=== PATIENT | male | born 1960 | race Caucasian/White ===

== ENCOUNTER 2018-10-25 09:38 | Emergency (ER) | payer BC ==
[~2018-10-25] VITALS: Ht 177.8 cm; Wt 102.5 kg
[~2018-10-25 09:38] MED LIST: AMOCLA875 PO; ATOR20 PO; Atenolol-Chlor1 EACH PO; HYDACE5; OXYACE5T PO; Omeprazole20 M1 PO; PENVK500
[2018-10-25] MEDS ORDERED: ATEN100 (09:55)
[2018-10-25] MEDS ORDERED: OTEZLA30 MG PO (09:55)
[2018-10-25] MEDS ORDERED: PSEU120ER PO (09:55)
[2018-10-25] MEDS ORDERED: CIPDEXSU RIGHTEAR (11:57)
== END 2018-10-25 12:09 | disposition home or self-care (01) ==
LOC: ER 09:38
DX: H60.91 Unspecified otitis externa, right ear (principal); Z88.8 Allergy status to other drugs, medicaments and biological substances; Z79.899 Other long term (current) drug therapy; I10 Essential (primary) hypertension; K21.9 Gastro-esophageal reflux disease without esophagitis; E78.5 Hyperlipidemia, unspecified
CPT/HCPCS: 70480; 99283-25

== ENCOUNTER 2021-07-27 06:44 | Emergency (ER) | payer BC ==
[~2021-07-27] VITALS: Ht 177.8 cm; Wt 103.4 kg
[~2021-07-27 06:44] MED LIST changes: +ATEN100; +CIPDEXSU RIGHTEAR; +OTEZLA30 MG PO; +PSEU120ER PO
[2021-07-27] MEDS ORDERED: LISI20 PO (07:26)
[2021-07-27] MEDS ORDERED: HUMIRA PEN40 MG/0.2 SC (07:26)
[2021-07-27] MEDS ORDERED: Prednisone20 MG PO (08:17)
== END 2021-07-27 08:21 | disposition home or self-care (01) ==
LOC: ER 06:44
DX: L27.1 Localized skin eruption due to drugs and medicaments taken internally (principal); T38.3X5A Adverse effect of insulin and oral hypoglycemic [antidiabetic] drugs, initial encounter; I10 Essential (primary) hypertension; E78.5 Hyperlipidemia, unspecified; K21.9 Gastro-esophageal reflux disease without esophagitis; Z79.899 Other long term (current) drug therapy
CPT/HCPCS: 99282; J7512

== ENCOUNTER 2021-08-17 10:37 | Emergency (ER) | payer BC ==
[~2021-08-17] VITALS: Ht 177.8 cm; Wt 99.8 kg
[~2021-08-17 10:37] MED LIST changes: +HUMIRA PEN40 MG/0.2 SC; +LISI20 PO; +Prednisone20 MG PO
[2021-08-17 11:14] LABS: BASOPHILS ABSOLUTE AUTO 0.03 K/mm3 (0.00-0.23); BASOPHILS PERCENT AUTO 0 % (0-2); EOSINOPHILS ABSOLUTE AUTO 0.05 K/mm3 (0.00-0.68); EOSINOPHILS PERCENT AUTO 1 % (0-6); Hematocrit 40.8 % (37.0-53.0); IMMATURE GRAN ABSOLUTE AUTO 0.02 K/mm3 (0.00-0.10); IMMATURE GRAN PERCENT AUTO 0 % (0-1); LYMPHOCYTES ABSOLUTE AUTO 2.31 K/mm3 (0.84-5.20); LYMPHOCYTES PERCENT AUTO 28 % (21-46); MONOCYTES ABSOLUTE AUTO 0.69 K/mm3 (0.16-1.47); MONOCYTES PERCENT AUTO 9 % (4-13); Mean Corpuscular HGB Conc 34.3 g/dL (31.5-36.5); Mean Corpuscular Volume 93 fL (80-100); Mean Platelet Volume 9.9 fL (9.1-12.4); NEUTROPHILS ABSOLUTE AUTO 5.04 K/mm3 (1.96-9.15); NEUTROPHILS PERCENT AUTO 62 % (41-73); Platelet Count 198 K/mm3 (150-400); RDW Coefficient Variation 13.9 % (11.7-14.2); RDW Standard Deviation 48.2 fL (35.1-46.3); Red Blood Cell Count 4.37 M/mm3 (4.30-5.90); White Blood Cell Count 8.14 K/mm3 (4.00-11.30)
[2021-08-17 11:30] LABS: Alanine Aminotransfer (ALT/SGP 132 U/L (12-78); Albumin, Blood 3.7 g/dL (3.4-5.0); Albumin/Globulin Ratio 1.2 (0.8-1.8); Alk Phos 53 U/L (50-136); Anion Gap 9 mmol/L (6-16); Aspartate Aminotrans (AST/SGOT 96 U/L (12-37); Bilirubin, Total 0.4 mg/dL (0.1-1.0); Blood Urea Nitrogen 9 mg/dL (8-24); Bun/Creatinine Ratio 11.7 (12.0-20.0); CO2, Blood 27 mmol/L (21-32); Calcium, Blood 9.4 mg/dL (8.5-10.1); Chloride, Blood 103 mmol/L (98-108); Creatinine, Blood 0.77 mg/dL (0.60-1.20); Globulin, Blood 3.1 g/dL (2.2-4.0); Glomerular Filtration Rate >60 (60-); Glucose, Blood 99 mg/dL (70-99); Potassium, Blood 3.2 mmol/L (3.5-5.5); Sodium, Blood 139 mmol/L (136-145); Total Protein, Blood 6.8 g/dL (6.4-8.2)
== END 2021-08-17 13:14 | disposition home or self-care (01) ==
LOC: ER 10:37
PROVIDERS: Emergency Medicine
DX: K40.20 Bilateral inguinal hernia, without obstruction or gangrene, not specified as recurrent (principal); I10 Essential (primary) hypertension; K21.9 Gastro-esophageal reflux disease without esophagitis; E78.5 Hyperlipidemia, unspecified; Z88.6 Allergy status to analgesic agent
CPT/HCPCS: 36415; 74177; 80053; 85025; Q9967

== ENCOUNTER 2022-01-25 13:14 | Emergency (ER) | payer BC ==
[~2022-01-25] VITALS: Ht 177.8 cm; Wt 95.7 kg
== END 2022-01-25 15:00 | disposition home or self-care (01) ==
LOC: ER 13:14
DX: S06.0X1A Concussion with loss of consciousness of 30 minutes or less, initial encounter (principal); K21.9 Gastro-esophageal reflux disease without esophagitis; I10 Essential (primary) hypertension; E78.5 Hyperlipidemia, unspecified; W19.XXXA Unspecified fall, initial encounter; Z79.899 Other long term (current) drug therapy; Z88.8 Allergy status to other drugs, medicaments and biological substances
CPT/HCPCS: 70450; 72125; 99284-25

== ENCOUNTER 2022-02-14 09:35 | Emergency (ER) | payer BC ==
[~2022-02-14] VITALS: Ht 177.8 cm; Wt 95.2 kg
[2022-02-14] MEDS ORDERED: ESCI20 PO (10:06)
[2022-02-14 10:43] LABS: BASOPHILS ABSOLUTE AUTO 0.01 K/mm3 (0.00-0.23); BASOPHILS PERCENT AUTO 0 % (0-2); EOSINOPHILS ABSOLUTE AUTO 0.01 K/mm3 (0.00-0.68); EOSINOPHILS PERCENT AUTO 0 % (0-6); Hemoglobin 13.8 g/dL (13.5-17.5); IMMATURE GRAN ABSOLUTE AUTO 0.01 K/mm3 (0.00-0.10); IMMATURE GRAN PERCENT AUTO 0 % (0-1); LYMPHOCYTES ABSOLUTE AUTO 1.97 K/mm3 (0.84-5.20); LYMPHOCYTES PERCENT AUTO 58 % (21-46); MONOCYTES ABSOLUTE AUTO 0.43 K/mm3 (0.16-1.47); MONOCYTES PERCENT AUTO 13 % (4-13); Mean Corpuscular HGB 32.2 pg (26.0-34.0); Mean Corpuscular HGB Conc 36.3 g/dL (31.5-36.5); Mean Corpuscular Volume 89 fL (80-100); Mean Platelet Volume 12.2 fL (9.1-12.4); NEUTROPHILS ABSOLUTE AUTO 0.98 K/mm3 (1.96-9.15); NEUTROPHILS PERCENT AUTO 29 % (41-73); Platelet Count 101 K/mm3 (150-400); RDW Coefficient Variation 14.4 % (11.7-14.2); RDW Standard Deviation 46.6 fL (35.1-46.3); Red Blood Cell Count 4.28 M/mm3 (4.30-5.90); White Blood Cell Count 3.41 K/mm3 (4.00-11.30)
[2022-02-14 10:59] LABS: Albumin, Blood 2.9 g/dL (3.4-5.0); Bun/Creatinine Ratio 6.4 (12.0-20.0); Calcium, Blood 8.8 mg/dL (8.5-10.1); Creatinine, Blood 0.94 mg/dL (0.60-1.20); Magnesium, Blood 1.6 mg/dL (1.6-2.4); Potassium, Blood 3.2 mmol/L (3.5-5.5); Total Protein, Blood 5.9 g/dL (6.4-8.2)
[2022-02-14 11:08] LABS: International Normalized Ratio 1.19; Prothrombin Time Results 12.4 Sec (9.7-11.5)
== END 2022-02-14 12:33 | disposition home or self-care (01) ==
LOC: ER 09:35
PROVIDERS: Emergency Medicine
DX: F10.10 Alcohol abuse, uncomplicated (principal); K70.30 Alcoholic cirrhosis of liver without ascites; E87.1 Hypo-osmolality and hyponatremia; E87.6 Hypokalemia; D69.6 Thrombocytopenia, unspecified; I10 Essential (primary) hypertension; Z79.899 Other long term (current) drug therapy
CPT/HCPCS: 70450; 80053; 82140; 83690; 83735; 85025; 85610; 85730; 93005; 93010; A9270; J7030

== ENCOUNTER 2022-04-29 09:24 | Day surgery (SDC) | payer BC ==
[~2022-04-29] VITALS: Ht 182.9 cm; Wt 103.1 kg
[~2022-04-29 09:24] MED LIST changes: +ESCI20 PO
[2022-04-29] MEDS ORDERED: Prinivil10 MG (09:46)
[2022-04-29] MEDS ORDERED: TESTOSTERONE200 MG (09:46)
== END 2022-04-29 11:38 | disposition home or self-care (01) ==
LOC: ORSCSDS 09:24
PROVIDERS: Internal Medicine Gastroenterology
PROC: 0DBP8ZX Excision of Rectum, Via Natural or Artificial Opening Endoscopic, Diagnostic (ICD-10-PCS; principal; 2022-04-29 10:45)
PROC: 0DB58ZX Excision of Esophagus, Via Natural or Artificial Opening Endoscopic, Diagnostic (ICD-10-PCS; principal; 2022-04-29 10:45)
DX: R10.84 Generalized abdominal pain (principal); K22.70 Barrett's esophagus without dysplasia; K62.5 Hemorrhage of anus and rectum; K62.1 Rectal polyp; Z80.0 Family history of malignant neoplasm of digestive organs; Z83.71 Family history of colonic polyps; E78.2 Mixed hyperlipidemia; I20.9 Angina pectoris, unspecified; I10 Essential (primary) hypertension; K64.4 Residual hemorrhoidal skin tags; K62.89 Other specified diseases of anus and rectum; K21.9 Gastro-esophageal reflux disease without esophagitis; F17.210 Nicotine dependence, cigarettes, uncomplicated; Z79.899 Other long term (current) drug therapy
CPT/HCPCS: 82947; 88305; J2704; J7120

== ENCOUNTER 2022-12-21 11:59 | Emergency (ER) | payer BC ==
[~2022-12-21] VITALS: Ht 180.3 cm; Wt 95.7 kg
[~2022-12-21 11:59] MED LIST changes: +Prinivil10 MG; +TESTOSTERONE200 MG
[2022-12-21 12:30] LABS: BASOPHILS ABSOLUTE AUTO 0.02 K/mm3 (0.00-0.23); BASOPHILS PERCENT AUTO 0 % (0-2); EOSINOPHILS ABSOLUTE AUTO 0.01 K/mm3 (0.00-0.68); EOSINOPHILS PERCENT AUTO 0 % (0-6); Hematocrit 35.4 % (37.0-53.0); Hemoglobin 12.2 g/dL (13.5-17.5); IMMATURE GRAN PERCENT AUTO 0 % (0-1); LYMPHOCYTES ABSOLUTE AUTO 2.52 K/mm3 (0.84-5.20); LYMPHOCYTES PERCENT AUTO 54 % (21-46); MONOCYTES ABSOLUTE AUTO 0.52 K/mm3 (0.16-1.47); MONOCYTES PERCENT AUTO 11 % (4-13); Mean Corpuscular HGB 33.9 pg (26.0-34.0); Mean Corpuscular HGB Conc 34.5 g/dL (31.5-36.5); Mean Corpuscular Volume 98 fL (80-100); Mean Platelet Volume 10.4 fL (9.1-12.4); NEUTROPHILS ABSOLUTE AUTO 1.63 K/mm3 (1.96-9.15); NEUTROPHILS PERCENT AUTO 35 % (41-73); Platelet Count 142 K/mm3 (150-400); RDW Coefficient Variation 15.4 % (11.7-14.2); RDW Standard Deviation 54.9 fL (35.1-46.3)
[2022-12-21 12:49] LABS: Albumin, Blood 2.6 g/dL (3.4-5.0); Albumin/Globulin Ratio 0.7 (0.8-1.8); Bilirubin, Total 4.6 mg/dL (0.1-1.0); Bun/Creatinine Ratio 2.6 (12.0-20.0); Calcium, Blood 8.4 mg/dL (8.5-10.1); Creatinine, Blood 0.78 mg/dL (0.60-1.20); Globulin, Blood 3.8 g/dL (2.2-4.0); Potassium, Blood 2.9 mmol/L (3.5-5.5); Total Protein, Blood 6.4 g/dL (6.4-8.2)
[2022-12-21 13:15] VITALS: BP 142/78
[2022-12-21] MEDS ORDERED: K-Dur20 MEQ PO (13:46)
== END 2022-12-21 14:07 | disposition home or self-care (01) ==
LOC: ER 11:59
PROVIDERS: Physician Assistant
DX: K70.40 Alcoholic hepatic failure without coma (principal); F10.10 Alcohol abuse, uncomplicated; Y90.9 Presence of alcohol in blood, level not specified; E87.8 Other disorders of electrolyte and fluid balance, not elsewhere classified; Z88.8 Allergy status to other drugs, medicaments and biological substances; Z79.899 Other long term (current) drug therapy; I10 Essential (primary) hypertension; K21.9 Gastro-esophageal reflux disease without esophagitis; E78.5 Hyperlipidemia, unspecified
CPT/HCPCS: 80053; 83690; 83880; 85025; 93005; 93010; 99284-25; A9270

== ENCOUNTER 2023-02-09 08:30 | Inpatient (IN) | payer BC ==
[~2023-02-09] VITALS: Ht 177.8 cm; Wt 95.9 kg
[~2023-02-09 08:30] MED LIST changes: +K-Dur20 MEQ PO; +OMEP20ER PO; -Omeprazole20 M1 PO; -Prinivil10 MG; +Prinivil10 MG PO; -TESTOSTERONE200 MG; +TESTOSTERONE200 MG IM
[2023-02-09 10:35] LABS: Calcium, Ionized (POC) 0.95 mmol/L (1.10-1.46); Chloride (POC) 101 mmol/L (98-108); Glucose (ISTAT POC) 79 mg/dL (70-99); Hemoglobin (POC) 15.3 g/dL (13.5-17.5); Potassium (POC) 4.6 mmol/L (3.5-5.5); Sodium (POC) 133 mmol/L (135-148); Total CO2 (POC) 19 mmol/L (21-32)
[2023-02-09 10:56] LABS: BASOPHILS ABSOLUTE AUTO 0.02 K/mm3 (0.00-0.23); BASOPHILS PERCENT AUTO 0 % (0-2); EOSINOPHILS ABSOLUTE AUTO 0.01 K/mm3 (0.00-0.68); EOSINOPHILS PERCENT AUTO 0 % (0-6); Hematocrit 38.3 % (37.0-53.0); Hemoglobin 13.8 g/dL (13.5-17.5); IMMATURE GRAN ABSOLUTE AUTO 0.02 K/mm3 (0.00-0.10); IMMATURE GRAN PERCENT AUTO 0 % (0-1); LYMPHOCYTES ABSOLUTE AUTO 1.95 K/mm3 (0.84-5.20); LYMPHOCYTES PERCENT AUTO 26 % (21-46); MONOCYTES ABSOLUTE AUTO 0.52 K/mm3 (0.16-1.47); MONOCYTES PERCENT AUTO 7 % (4-13); Mean Corpuscular HGB 33.1 pg (26.0-34.0); Mean Corpuscular Volume 92 fL (80-100); NEUTROPHILS PERCENT AUTO 67 % (41-73); Platelet Count 142 K/mm3 (150-400); RDW Coefficient Variation 14.3 % (11.7-14.2); RDW Standard Deviation 48.5 fL (35.1-46.3); Red Blood Cell Count 4.17 M/mm3 (4.30-5.90); White Blood Cell Count 7.62 K/mm3 (4.00-11.30)
[2023-02-09 11:29] LABS: Albumin, Blood 3.3 g/dL (3.4-5.0); Albumin/Globulin Ratio 1.1 (0.8-1.8); Bilirubin, Total 3.5 mg/dL (0.1-1.0); Bun/Creatinine Ratio 10.6 (12.0-20.0); Calcium, Blood 8.1 mg/dL (8.5-10.1); Creatinine, Blood 3.22 mg/dL (0.60-1.20); Globulin, Blood 3.1 g/dL (2.2-4.0); Potassium, Blood 4.7 mmol/L (3.5-5.5); Total Protein, Blood 6.4 g/dL (6.4-8.2)
[2023-02-09 15:58] VITALS: BP 107/50
[2023-02-09 19:28] VITALS: BP 118/55
--- NOTE | 2023-02-09 19:45 | NUR ---
SHIFT SUMMARY- PT ADMITTED THROUGH THE ED. DEFINATELY UNDER THE INFLUENCE OF ALCOHOL AND SMELLING OF VODKA. PT HAS SNUFF IN HIS MOUTH ON ARRIVAL, THIS RN PLACED THE CAN OF CHEW IN THE LOCKED DRAWER. PT CALLED HIS SPOUSE AND ASKED HER TO BRING HIM MORE. THIS EVENING AFTER DINNER THE PT HAD MORE IN HIS MOUTH. PASSED ON IN BEDSIDE REPORT FOR NIGHT RN TO PLACE THE NEXT CAN OF SNUFF IN THE SAME LOCATION. PT HAD SEVERE SHAKES ON ARRIVAL AND STATED IT WAS BECAUSE OF ANXIETY MEDICATED WITH 1MG PO ATIVAN PER DR WOODARD. PT SPOUSE CAME TO SEE HIM THIS EVENING. PER HER AND THE PT, THE PT FELL INTO A GLASS CABINET AND CUT HIMSELF; BEING DRUNK HE DECIDED TO GO TO BED. HE WOKE LATER AND DECIDED TO GO TO THE BATHROOM, SLIPPED IN HIS OWN PUDDLE OF BLOOD. THERE IS MULTIPLE SCATTERED BRUISES NOTED LIKELY R/T THIS. PHOTO TAKEN OF THE LEG LACERATION, HAND LACERATION WAS SPLINTED DR LADN CONSULTED, WILL WAIT FOR HIM TO UNDRESS THE WOUND, DRESSING C/D/I. PT IN BED CALL LIGHT IN REACH NO S&S OF DISTRESS.
[2023-02-10 05:13] VITALS: BP 130/62
[2023-02-10 05:42] LABS: Hematocrit 33.3 % (37.0-53.0); Hemoglobin 12.3 g/dL (13.5-17.5); Mean Corpuscular HGB 32.5 pg (26.0-34.0); Mean Corpuscular HGB Conc 36.9 g/dL (31.5-36.5); Mean Corpuscular Volume 88 fL (80-100); Mean Platelet Volume 11.7 fL (9.1-12.4); Platelet Count 98 K/mm3 (150-400); RDW Coefficient Variation 13.9 % (11.7-14.2); RDW Standard Deviation 44.8 fL (35.1-46.3); Red Blood Cell Count 3.79 M/mm3 (4.30-5.90)
[2023-02-10 06:26] LABS: Albumin, Blood 3.1 g/dL (3.4-5.0); Albumin/Globulin Ratio 1.1 (0.8-1.8); Bilirubin, Total 3.3 mg/dL (0.1-1.0); Bun/Creatinine Ratio 16.2 (12.0-20.0); Calcium, Blood 8.4 mg/dL (8.5-10.1); Creatinine, Blood 1.73 mg/dL (0.60-1.20); Globulin, Blood 2.8 g/dL (2.2-4.0); Magnesium, Blood 1.6 mg/dL (1.6-2.4); Total Protein, Blood 5.9 g/dL (6.4-8.2)
--- NOTE | 2023-02-10 06:34 | NUR ---
SHIFT SUMMARY A/OX4. ROOM AIR. PT STATES HE HAS NO PAIN. PRN ATIVAN 1 MG GIVEN X2 FOR SEVERE TREMORS. PATIENT IS UNSTEADY ON HIS FEET, 1 PERSON TO BSC. PT IS STARTING TO HAVE SOME VISUAL HALLUCINATIONS, HE THOUGTH I HAD BARON PINS ALL OVER MY ARMS. NO NAUSEA, NO AUDITORY HALLUCINATIONS, COOPERATIVE AND FOLLOWS COMMANDS. LR INFUSING AT 150 ML/HR. BED LOCKED IN LOW POSITION, CALL LIGHT IN REACH, BED ALARM ON HE DOES NOT CALL BEFORE ATTEMPTING TO GET UP. SCD'S ON RIGHT LEG ONLY, DRESSING TO LEFT ANKLE IN PLACE.
[2023-02-10 06:42] LABS: BASOPHILS PERCENT MAN 0 % (0-2); EOSINOPHILS PERCENT MAN 0 % (0-6); LYMPHOCYTES ABSOLUTE MAN 2.05 K/mm3 (0.84-5.20); LYMPHOCYTES PERCENT MAN 27 % (21-46); MONOCYTES PERCENT MAN 4 % (4-13); NEUTROPHILS ABSOLUTE MAN 5.24 K/mm3 (1.96-9.15); SEG NEUTROPHILS PERCENT MAN 69 % (41-73); TOTAL CELLS COUNTED 100
[2023-02-10 07:39] VITALS: BP 139/63
--- NOTE | 2023-02-10 11:15 | NUR ---
[facility]- PT DOES NOT HAVE OFFICIAL [facility] ORDERS, AWARE. PT WOKE AND NEEDED TO URINATE, HE COULD NOT FIGURE OUT THE CALL LIGHT AND INSTEAD GOT OOB, SETTING OFF THE BED ALARM. THIS RN RESPONDED, THE PT STANDING NEXT TO THE BED SHAKING AND JERKING, DISORIENTED STILL ATTACHED TOP IV AND SCD. VOIDING ON THE FLOOR. PT HAD BEEN ENCOURAGED TO CALL FOR SATFF ASSISTANCE EARLIER AND HE SEEMED TO UNDERSTAND AT THAT TIME. STAFF ASSISTED THE PT TO CHANGE HIS UNDER GARMENTS WELL SOILED GOWN. LINNENS CHANGED AND EVS WAS CALLED FOR A MOP UP. PT ASSISTED BACK TO BED AND MEDICATED FOR THE TREMMORS WITH PO ATIVAN. IV STILL PATENT, URINE SOAKED DRESSINGS CHANGED, URINE SOAKED SCD CHANGED. PT IN BED AND SHAKING VIOLENTLY, MEDICATED WITH 1 MG PO ATIVAN AT 1120. PT DENIES ONEIL NAUSEA OR HALLUCINATIONS, CAN NO LONGER STATE THE DATE, BUT HE KNOWS HE IS AT [facility] IN [place].
[2023-02-10 15:20] VITALS: BP 143/69
[2023-02-10 19:17] VITALS: BP 147/74
--- NOTE | 2023-02-10 20:15 | NUR ---
SHIFT SUMMARY- PT ALERT AND ORIENTED BUT SEMS MORE CONFUSED THIS EVENING, TREMMORS APEAR TO BE BETTER WITH THE REGULAR Tx WITH PO ATIVAN. PT IS PLEASENT AND HAS HAD SMAL HALLUCINATIONS ON AND OFF T/O THE DAY. HE HAD AN INCIDENT WHERE HE SEEMED TO ASPIRATE CHEWING TOBACO ( NOTIFIED). THE SECOND CAN OF IT WAS PLACED IN THE LOCKED DRAWER. PT SPOUSE BROUGHT ANOTHER CAN THIS EVENING. THIS RN EXPLAINED TO HER THAT PER DR WOODARD THE PT IS NOT ALLOWED TO HAVE IT HERE AND SHE NEEDS TO TAKE IT HOME WITH HER WHEN SHE LEAVES. PT HAS SOME IN HIS MOUTH CURRENTLY, BUT SHE TOOK THE THIRD CAN HOME WITH HER. PT IN BED, CALL LIGHT IN REACH, NO S&S OF DISTRESS AT THE TIME OF BEDSIDE REPORT.
[2023-02-11 04:47] VITALS: BP 118/69
--- NOTE | 2023-02-11 05:50 | NUR ---
SHIFT SUMMARY 62 YR M ADMITTED ON 02/09/23 FOR [facility]. FULL CODE. NO ACUTE CHANGES THIS SHIFT. PT WAS A&O X 2 AT BEGINNING OF SHIFT. HE IS UNSTAEDY ON HIS FEET AND HAS TREMORS OF BOTH HANDS. PT HAS SLEPT FOR MOST OF THIS SHIFT SO NO ATIVAN WAS GIVEN. WILL CONTINUE TO MONITOR FOR S/S OF DT'S.
[2023-02-11 05:52] LABS: Hematocrit 30.9 % (37.0-53.0); Hemoglobin 11.3 g/dL (13.5-17.5); Mean Corpuscular HGB 33.2 pg (26.0-34.0); Mean Corpuscular HGB Conc 36.6 g/dL (31.5-36.5); Mean Corpuscular Volume 91 fL (80-100); Mean Platelet Volume 12.4 fL (9.1-12.4); Platelet Count 58 K/mm3 (150-400); RDW Coefficient Variation 14.3 % (11.7-14.2); RDW Standard Deviation 47.8 fL (35.1-46.3); White Blood Cell Count 4.86 K/mm3 (4.00-11.30)
[2023-02-11 06:06] LABS: Magnesium, Blood 1.4 mg/dL (1.6-2.4)
[2023-02-11 06:07] LABS: Bun/Creatinine Ratio 12.5 (12.0-20.0); Calcium, Blood 8.2 mg/dL (8.5-10.1); Creatinine, Blood 1.04 mg/dL (0.60-1.20); Potassium, Blood 3.8 mmol/L (3.5-5.5)
[2023-02-11 06:55] LABS: BASOPHILS PERCENT MAN 0 % (0-2); EOSINOPHILS ABSOLUTE MAN 0.04 K/mm3 (0.00-0.68); EOSINOPHILS PERCENT MAN 1 % (0-6); LYMPHOCYTES ABSOLUTE MAN 1.99 K/mm3 (0.84-5.20); LYMPHOCYTES PERCENT MAN 41 % (21-46); MONOCYTES ABSOLUTE MAN 0.19 K/mm3 (0.16-1.47); MONOCYTES PERCENT MAN 4 % (4-13); NEUTROPHILS ABSOLUTE MAN 2.62 K/mm3 (1.96-9.15); SEG NEUTROPHILS PERCENT MAN 54 % (41-73); TOTAL CELLS COUNTED 100
[2023-02-11 07:11] VITALS: BP 127/79
[2023-02-11 15:56] VITALS: BP 148/66
--- NOTE | 2023-02-11 18:30 | NUR ---
SHIFT SUMMARY PATIENT ALERT, IMPULSIVE AND AMBULATING IN THE ROOM. PATIENT AMBULATED 2X AROUND THE UNIT WITH STAND BY ASSIST. WOUNDS ON L LEG AND L HAND CLEANSED AND REDRESSED. PATIENT OBSERVED FOR SYMPTOMS OF WITHDRAWL. PATIENT MEDICATED X2 WITH ATIVAN FOR TREMORS AND ANXIETY. PATIENT DENIES ANY HALLUCINATIONS OR DELUSIONS. PATIENT LOOKING FORWARD TO DISCHARGING IN AM.
[2023-02-11 18:43] VITALS: BP 143/73
--- NOTE | 2023-02-12 04:08 | NUR ---
SHIFT SUMMARY: PT IS ADMITTED FOR [facility] AND IS A FULL CODE. IS ALERT AND ABLE TO MAKE NEEDS KNOWN. 1P STBY FOR ADLS. NO COMPLAINTS OF PAIN OR DISCOMFORT THROUGH SHIFT.
[2023-02-12 04:33] VITALS: BP 118/73
[2023-02-12 07:34] VITALS: BP 124/73
[2023-02-12] MEDS ORDERED: Ativan1 MG PO (11:25)
--- NOTE | 2023-02-12 17:03 | NUR ---
SHIFT SUMMARY AND DISCHARGE PATIENT INDEPENDENT IN THE ROOM. PATIENT HAVING MILD TREMORS AND STATES THAT THIS IS NORMAL FOR HIM. PATIENT DOES NOT PLAN TO STOP DRINKING AND DOES NOT WANT ANY ASSISTANCE AT THIS TIME. WOUNDS CLEANSED AND REDRESSED BEFORE DISCHARGE. DISCHARGE INSTRUCTIONS REVIEWED WITH PATIENT AND . BELONGINGS SENT HOME WITH PATIENT. ROOM CHECK DONE PRIOR TO DISCHARGE. IV DC'D PRIOR TO DISCHARGE. PATIENT REQUESTED TO WALK OUT. PATIENT ESCORTED OUT TO CAR. PAPER SCRIPT FOR ATIVAN GIVEN TO PATIENT.
== END 2023-02-12 12:13 | disposition home or self-care (01) | DRG 896 ==
LOC: ER 08:30 → MEDS 13:31 → ENPENDDIS 02-12 09:55 → MEDS 02-12 12:13
PROVIDERS: Emergency Medicine; ADMIT Internal Medicine
PROC: HZ2ZZZZ Detoxification Services for Substance Abuse Treatment (ICD-10-PCS; principal; 2023-02-09)
DX: F10.239 Alcohol dependence with withdrawal, unspecified (principal); N17.0 Acute kidney failure with tubular necrosis; E87.1 Hypo-osmolality and hyponatremia; E86.0 Dehydration; K70.10 Alcoholic hepatitis without ascites; K76.0 Fatty (change of) liver, not elsewhere classified; S61.412A Laceration without foreign body of left hand, initial encounter; S91.012A Laceration without foreign body, left ankle, initial encounter; S61.217A Laceration without foreign body of left little finger without damage to nail, initial encounter; W17.89XA Other fall from one level to another, initial encounter; L40.50 Arthropathic psoriasis, unspecified; F32.A Depression, unspecified; G89.29 Other chronic pain; I10 Essential (primary) hypertension; E78.5 Hyperlipidemia, unspecified; E83.42 Hypomagnesemia; Z71.41 Alcohol abuse counseling and surveillance of alcoholic; K21.9 Gastro-esophageal reflux disease without esophagitis; Z98.890 Other specified postprocedural states; Z88.8 Allergy status to other drugs, medicaments and biological substances; Z79.899 Other long term (current) drug therapy; Y90.8 Blood alcohol level of 240 mg/100 ml or more
CPT/HCPCS: 12002; 36415; 71045; 73130; 76700; 76857; 80047; 80048; 80053; 83735; 85014; 85025; 90471; 90715; 93005; 93010; 96360-59; 99285-25; A9270; J3411; J7120

== ENCOUNTER 2023-10-22 10:38 | Emergency (ER) | payer BC ==
[~2023-10-22] VITALS: Ht 180.3 cm; Wt 93.4 kg
[~2023-10-22 10:38] MED LIST changes: +Ativan1 MG PO
[2023-10-22 10:48] VITALS: BP 151/96
[2023-10-22] MEDS ORDERED: OMEP20ER PO (10:53)
[2023-10-22] MEDS ORDERED: HYDR1TAB94 PO (11:27)
[2023-10-22] MEDS ORDERED: HYDROcodone 5-APAP 325 TAB PO ONE (11:30)
== END 2023-10-22 11:46 | disposition home or self-care (01) ==
LOC: ER 10:38
DX: S20.211A Contusion of right front wall of thorax, initial encounter (principal); I10 Essential (primary) hypertension; E78.5 Hyperlipidemia, unspecified; K21.9 Gastro-esophageal reflux disease without esophagitis; X58.XXXA Exposure to other specified factors, initial encounter; Z79.899 Other long term (current) drug therapy; Z88.8 Allergy status to other drugs, medicaments and biological substances
CPT/HCPCS: 71101; 99283-25; A9270